=== PATIENT | female | born 1955 | race Caucasian/White ===

== ENCOUNTER → 2017-02-14 | Outpatient (CLI) | payer MEDICARE, OTHER ==
[~2017-02-14] MED LIST: ACID CONTROL150 M1 PO; ALBUTEROL17 GM INH; AMOXICILLIN PO; ASPIRIN PO; ASPIRIN81 M1 PO; ASPIRIN81 M2 PO; B 12 INJ; CIPRO PO; DIAZEPAM PO; FISH OIL 1,0001 EAC1 PO; KEFLEX500 MG PO; LEVOTHYROXINE112 MCG PO; LIPITOR PO; LOW DOSE ASPIRI81 M1 PO; NAPROSYN-EC500 M1 PO; NEXIUM PO; NEXIUM20 MG PO; NORCO 10-325 TA1 TAB PO; NORCO 10/325 TA1 TAB PO; NORCO 5/325 TAB1 TAB PO; PARAFON FORTE500 MG PO; PEPCID PO; PHENERGAN25 MG PO; PRILOSEC20 MG PO; ROBITUSSIN AC PO; SYNTHROID PO; SYNTHROID125 PO; TOBREX5 ML OP; TRIAMCINOLONE AC1 GM; VICODIN 5/500 T1 TAB PO; VIT B-12 PO; VIT E SUBQ; VITAMIN B-1000 MCG/1 IJ; VITAMIN C500 M1 PO; VITAMIN C500 MG PO; VITAMIN D33000 UNIT PO; VITAMIN D35000 UNIT PO; VITAMIN D50000 UNIT PO; VOLTAREN75 MG PO; ZANTAC PO; ZANTAC150 MG PO
--- NOTE | ~2017-02-14 | CT7 ---
[facility] A Service of [facility] RADIOLOGY TEXT RESULTS PATIENT: ANKITA JEAN BAPTISTE LOCATION: [facility] : 59 UNIT #: [id number] AGE: [address]: Lluvia Villeda MD SEX: F ORDER DR: [id number] [place] [id number] [facility]. [place], [place] [address] [id number] O MR#: [id number] Acc #: [id number] NAME: ANKITA JEAN BAPTISTE. : 1955 SEX: F STUDY DATE/TIME: 02/14/2017 9:03 UNIT: [facility] ROOM: STUDY DESCRIPTION: CT Abdomen Wo Cont Attending Physician: Lluvia Villeda M.D. Ordering Physician: Lluvia Villeda M.D. Primary Care Physician: Lluvia Villeda M.D. MEDICAL IMAGING REPORT This report is preliminary unless electronic signature is present EXAM CT abdomen and pelvis without contrast INDICATIONS Upper mid abdominal protrusion concerning for hernia. TECHNIQUE CT of the abdomen performed without contrast. Coronal and sagittal reformatted images were obtained. This CT exam was performed with one or more of the following radiation dose reduction techniques: automatic exposure control, adjustment of mA and/or kV according to patient size, and iterative reconstruction. COMPARISON 07/30/2009 FINDINGS The liver is unremarkable. Questionable tiny gallstone. The spleen is unremarkable. The kidneys, adrenal glands and pancreas are unremarkable. There are scattered diverticula involving the visualized colon. There is no evidence of an abdominal wall hernia. The bone windows demonstrate degenerative changes of the lower lumbar spine. IMPRESSION No evidence of ventral abdominal wall hernia. Dictated by... Daniel Quinones M.D. THIS IS AN ELECTRONICALLY VERIFIED REPORT Daniel Quinones M.D. at 02/14/2017 4:57 PM ARS/to [facility] A Service of [facility] RADIOLOGY TEXT RESULTS PATIENT: ANKITA JEAN BAPTISTE LOCATION: [facility] : 59 UNIT #: [id number] AGE: [address]: Lluvia Villeda MD SEX: F ORDER DR: TD: 02/14/2017 14:37 JOB #: [id number] MEDICAL IMAGING REPORT Page 1 of 1 COPY
== END | disposition home or self-care (01) ==
LOC: CCAT 08:03
DX: K44.9 Diaphragmatic hernia without obstruction or gangrene (principal)
CPT/HCPCS: 74150

== ENCOUNTER 2017-02-28 22:22 | Emergency (ER) | payer MEDICARE, OTHER ==
[~2017-02-28 22:22] MED LIST changes: -ACID CONTROL150 M1 PO; -ALBUTEROL17 GM INH; -ASPIRIN81 M2 PO; -FISH OIL 1,0001 EAC1 PO; -SYNTHROID125 PO; -VIT B-12 PO; -VITAMIN C500 M1 PO; -VITAMIN D35000 UNIT PO
[2017-05-31] MEDS ORDERED: VIT B-12 PO (13:51)
[2017-05-31] MEDS ORDERED: ASPIRIN81 M2 PO (13:51)
[2017-05-31] MEDS ORDERED: ACID CONTROL150 M1 PO (13:51)
[2017-05-31] MEDS ORDERED: VITAMIN C500 M1 PO (13:53)
[2017-05-31] MEDS ORDERED: FISH OIL 1,0001 EAC1 PO (13:53)
[2017-05-31] MEDS ORDERED: ALBUTEROL17 GM INH (13:53)
[2017-05-31] MEDS ORDERED: SYNTHROID125 PO (13:56)
[2017-05-31] MEDS ORDERED: LIPITOR PO (14:56)
[2017-05-31] MEDS ORDERED: VITAMIN D35000 UNIT PO (15:25)
== END 2017-02-28 22:48 | disposition home or self-care (01) ==
LOC: CFTX 22:22
DX: H92.03 Otalgia, bilateral (principal); J06.9 Acute upper respiratory infection, unspecified; T78.40XA Allergy, unspecified, initial encounter; E78.5 Hyperlipidemia, unspecified; I10 Essential (primary) hypertension; E03.9 Hypothyroidism, unspecified; K21.9 Gastro-esophageal reflux disease without esophagitis; Z90.710 Acquired absence of both cervix and uterus; Z98.890 Other specified postprocedural states
CPT/HCPCS: 99282

== ENCOUNTER 2017-04-02 04:41 | Emergency (ER) | payer MEDICARE, OTHER ==
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
[2017-05-31] MEDS ORDERED: ASPIRIN81 M2 PO (13:51)
[2017-05-31] MEDS ORDERED: VIT B-12 PO (13:51)
[2017-05-31] MEDS ORDERED: ACID CONTROL150 M1 PO (13:51)
[2017-05-31] MEDS ORDERED: VITAMIN C500 M1 PO (13:53)
[2017-05-31] MEDS ORDERED: ALBUTEROL17 GM INH (13:53)
[2017-05-31] MEDS ORDERED: FISH OIL 1,0001 EAC1 PO (13:53)
[2017-05-31] MEDS ORDERED: SYNTHROID125 PO (13:56)
[2017-05-31] MEDS ORDERED: LIPITOR PO (14:56)
[2017-05-31] MEDS ORDERED: VITAMIN D35000 UNIT PO (15:25)
== END 2017-04-02 06:15 | disposition home or self-care (01) ==
LOC: CED 04:41
DX: S13.4XXA Sprain of ligaments of cervical spine, initial encounter (principal); S00.03XA Contusion of scalp, initial encounter; Y04.2XXA Assault by strike against or bumped into by another person, initial encounter; Y92.009 Unspecified place in unspecified non-institutional (private) residence as the place of occurrence of the external cause; Z79.82 Long term (current) use of aspirin; Z79.899 Other long term (current) drug therapy
CPT/HCPCS: 72040; 99283

== ENCOUNTER 2017-04-03 22:13 | Emergency (ER) | payer MEDICARE, OTHER ==
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
[2017-05-31] MEDS ORDERED: ACID CONTROL150 M1 PO (13:51)
[2017-05-31] MEDS ORDERED: ASPIRIN81 M2 PO (13:51)
[2017-05-31] MEDS ORDERED: VIT B-12 PO (13:51)
[2017-05-31] MEDS ORDERED: FISH OIL 1,0001 EAC1 PO (13:53)
[2017-05-31] MEDS ORDERED: VITAMIN C500 M1 PO (13:53)
[2017-05-31] MEDS ORDERED: ALBUTEROL17 GM INH (13:53)
[2017-05-31] MEDS ORDERED: SYNTHROID125 PO (13:56)
[2017-05-31] MEDS ORDERED: LIPITOR PO (14:56)
[2017-05-31] MEDS ORDERED: VITAMIN D35000 UNIT PO (15:25)
== END 2017-04-04 05:26 | disposition home or self-care (01) ==
LOC: CED 22:13
DX: S09.90XA Unspecified injury of head, initial encounter (principal); S00.83XA Contusion of other part of head, initial encounter; E78.5 Hyperlipidemia, unspecified; E03.9 Hypothyroidism, unspecified; Z90.711 Acquired absence of uterus with remaining cervical stump; Y04.0XXA Assault by unarmed brawl or fight, initial encounter; Y92.009 Unspecified place in unspecified non-institutional (private) residence as the place of occurrence of the external cause
CPT/HCPCS: 70450; 70486; 72125; 99284

== ENCOUNTER → 2017-05-31 | Day surgery (SDC) | payer MEDICARE, OTHER ==
[~2017-05-31] MED LIST changes: +ACID CONTROL150 M1 PO; +ALBUTEROL17 GM INH; +ASPIRIN81 M2 PO; +FISH OIL 1,0001 EAC1 PO; +SYNTHROID125 PO; +VIT B-12 PO; +VITAMIN C500 M1 PO; +VITAMIN D35000 UNIT PO
--- NOTE | ~2017-05-31 | OR ---
Unit #: [id number] #: [id number] Patient: ANKITA JEAN BAPTISTE [id number] [address] [place], [place] [address] [id number] O MR#: [id number] NAME: ANKITA JEAN BAPTISTE ROOM: Date of Procedure: 05/31/2017 Admission Date: 05/31/2017 Surgeon: Ulisses Renee Jr., M.D. : 1955 Attending Physician: Ulisses Renee Jr., M.D. Primary Care Physician: Lluvia Villeda M.D. OPERATIVE REPORT INDICATIONS FOR PROCEDURE The patient is a 62-year-old white female, recently presented to the office couple of months ago, complaining of progressive constipation. There was a question of whether she could possibly have some partial obstruction. She is brought in this time for colonoscopy at her request. She has had no recent colonoscopies, no rectal bleeding, and no weight loss. PREOPERATIVE DIAGNOSIS Progressive constipation, rule out obstruction. POSTOPERATIVE DIAGNOSES Diverticulosis of left colon and a small lipoma of the ascending colon, otherwise no other abnormalities. ANESTHESIA MAC anesthesia. PROCEDURE PERFORMED Flexible colonoscopy to the distal ilium. DESCRIPTION OF PROCEDURE The patient was positioned in Crump position with left side down. After being given MAC anesthesia, digital rectal examination was performed, which revealed no palpable mass or tenderness. No blood or stool within the rectal ampulla. The Olympus colonoscope was advanced through the anal canal up the rectum and retroflexed down to the area of the anorectal region. There was no evidence of any fissures. There were some small internal hemorrhoidal tags felt to be of no major significance. The scope was then straightened and advanced up the rectosigmoid, in the sigmoid descending colon areas where a few diverticula present without evidence of diverticulitis. The scope was then advanced around the splenic flexure and the transverse colon, around the hepatic flexure and ascending colon, down to the area of the cecum. There was a small lipoma which was transmural near the area of the cecum in the ascending colon. The scope was advanced up the distal ileum approximately 10 to 12 inches. There was no evidence of any ileitis or inflammatory bowel disease. The scope was slowly removed. There were no tumors, polyps, cancer, or AVMs. No evidence of any colitis or acute diverticulitis. The caliber of the colon appeared normal throughout without evidence of obstruction or partial blockage. The scope was removed. The patient tolerated the procedure well and discharged in satisfactory condition. Unit #: [id number] #: [id number] Patient: ANKITA JEAN BAPTISTE Dictated by... Ulisses Renee Jr., M.D. JMB/bonilla TD: 06/01/2017 00:24 JOB #: [id number] CC: Lluvia Villeda M.D. OPERATIVE REPORT Page 1 of 1 X Ulisses Reene MD X PROCEDURE OPERATIVE NOTE
== END | disposition home or self-care (01) ==
LOC: COPS 11:50
DX: K57.30 Diverticulosis of large intestine without perforation or abscess without bleeding (principal); D17.5 Benign lipomatous neoplasm of intra-abdominal organs; K64.8 Other hemorrhoids; M19.90 Unspecified osteoarthritis, unspecified site; K21.9 Gastro-esophageal reflux disease without esophagitis; E78.00 Pure hypercholesterolemia, unspecified; E03.9 Hypothyroidism, unspecified; G43.909 Migraine, unspecified, not intractable, without status migrainosus; G47.30 Sleep apnea, unspecified; K59.00 Constipation, unspecified; Q79.59 Other congenital malformations of abdominal wall; J43.9 Emphysema, unspecified; E66.01 Morbid (severe) obesity due to excess calories; Z68.34 Body mass index [BMI] 34.0-34.9, adult; Z87.891 Personal history of nicotine dependence; Z80.0 Family history of malignant neoplasm of digestive organs; Z79.82 Long term (current) use of aspirin; Z79.899 Other long term (current) drug therapy; Z98.49 Cataract extraction status, unspecified eye; Z90.710 Acquired absence of both cervix and uterus; Z98.890 Other specified postprocedural states